=== PATIENT | male | born 1990 | race Caucasian/White ===

== ENCOUNTER 2019-09-29 18:13 | Emergency (ER) | payer BC, OTHER ==
[~2019-09-29] VITALS: Ht 180.3 cm; Wt 65.8 kg
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
--- NOTE | 2019-09-29 18:21 | NUR ---
NORBERTO DASILVA MUSIC DIRECTOR AT BEDSIDE FOR EVAL.
[2019-09-29] MEDS ORDERED: TDAP [DIPH/PERTUSSIS/TET] 0.5 ML VIAL IM ONE ×2 (18:30→18:36)
[2019-09-29] MEDS ORDERED: ACETAMINOPHEN ES 500 MG TABLET ONE (18:35)
[2019-09-29] MEDS ORDERED: ONDANSETRON 4 MG TAB.RAPDIS ONE (18:36)
[2019-09-29] MEDS: ACETAMINOPHEN ES 500 MG TABLET PO ONE ×2 (18:40→18:44)
[2019-09-29] MEDS: ONDANSETRON 4 MG TAB.RAPDIS SL ONE ×2 (18:40→18:44)
--- NOTE | 2019-09-29 18:40 | NUR ---
PT IS WHEELED TO CT SCAN VIA [facility].
--- NOTE | 2019-09-29 19:02 | NUR ---
REPORT GIVEN TO CARIE NAM FOR [facility].
--- NOTE | 2019-09-29 19:13 | NUR ---
EMT AT BEDSIDE FOR WOUND CARE AND TREATMENT.
--- NOTE | 2019-09-29 19:44 | NUR ---
Patient discharged to home in stable condition. Written and verbal after care instructions given. Patient verbalizes understanding of instruction and RX. VSS. No acute distress noted. Pt ambulated with steady gait.
[2019-09-29 19:45] VITALS: BP 128/78
== END 2019-09-29 19:45 | disposition home or self-care (01) ==
LOC: ER 18:16
DX: S06.0X0A Concussion without loss of consciousness, initial encounter (principal); S70.212A Abrasion, left hip, initial encounter; S80.812A Abrasion, left lower leg, initial encounter; S19.9XXA Unspecified injury of neck, initial encounter; F17.200 Nicotine dependence, unspecified, uncomplicated; Z98.890 Other specified postprocedural states; V23.4XXA Motorcycle driver injured in collision with car, pick-up truck or van in traffic accident, initial encounter; Y93.55 Activity, bike riding; Y92.413 State road as the place of occurrence of the external cause; Y99.8 Other external cause status
CPT/HCPCS: 70450; 72125; 90471; 90715; 99285; Q0162